=== PATIENT | male | born 1980 | race African-American/Black ===

== ENCOUNTER 2022-02-28 07:29 | Emergency (ER) | payer SELFPAY | END 2022-02-28 09:15 | disposition home or self-care (01) | LOC: CSHERS 07:29 | DX: S93.402A Sprain of unspecified ligament of left ankle, initial encounter (principal); F17.210 Nicotine dependence, cigarettes, uncomplicated; X50.1XXA Overexertion from prolonged static or awkward postures, initial encounter; Y93.51 Activity, roller skating (inline) and skateboarding ==

== ENCOUNTER 2022-06-22 17:18 | Emergency (ER) | payer SELFPAY | END 2022-06-22 18:37 | disposition home or self-care (01) | LOC: CSHERS 17:18 | DX: B34.9 Viral infection, unspecified (principal); F17.210 Nicotine dependence, cigarettes, uncomplicated; Z20.822 Contact with and (suspected) exposure to COVID-19 | CPT/HCPCS: 87804; 99283; U0003; U0005 ==